=== PATIENT | female | born 1965 | race Caucasian/White ===

== ENCOUNTER 2019-11-02 11:51 | Outpatient (REF) | payer MEDICARE, SELFPAY ==
[2019-11-02 20:01] LABS: COMMENT (LAB VIEW ONLY) 81.66 mg/dL; Microalb ug/mg Crea 3.7 ug/mg Cr
[2019-11-02 21:27] LABS: ALT 32 U/L (14-59); AST 7 U/L (15-37); Albumin 3.5 g/dL (3.4-5.0); Alkaline Phosphatase 123 U/L (46-116); BUN 18 mg/dL (7-18); Bilirubin, Total 0.4 mg/dL (0.2-1.0); CREATININE 0.94 mg/dL (0.55-1.02); Calcium 9.1 mg/dL (8.5-10.1); Calculated LDL 67 mg/dL (<100); Chloride 105 mmol/L (98-107); Cholesterol 129 mg/dL (<200); Glucose 181 mg/dL (74-106); HDL Cholesterol 35 mg/dL (40-60); Sodium 139 mmol/L (136-145); Total Protein 6.6 g/dL (6.4-8.2); Triglyceride 137 mg/dL (<150)
== END 2019-11-02 12:11 ==
LOC: NCHCN 11:51
PROVIDERS: PCP Family Medicine; Visit Provider Nurse Practitioner Family
DX: E11.9 Type 2 diabetes mellitus without complications (principal); Z79.4 Long term (current) use of insulin; I10 Essential (primary) hypertension; E78.5 Hyperlipidemia, unspecified
CPT/HCPCS: 80053; 80061; 82043; 82570

== ENCOUNTER 2023-03-13 12:48 | Outpatient (REF) | payer MEDICARE, SELFPAY | END 2023-03-13 12:49 | disposition home or self-care (01) | LOC: NCHCN 12:48 | PROVIDERS: PCP Family Medicine; Visit Provider Family Medicine | DX: N39.0 Urinary tract infection, site not specified (principal) | CPT/HCPCS: 87077; 87086; 87186 ==

== ENCOUNTER 2023-07-28 13:24 | Outpatient (REF) | payer MEDICARE, SELFPAY ==
[2023-07-28 14:19] LABS: Abs Immature Grans 0.03 10^3/uL (0.0-0.06); Absolute Basophil Count 0.05 10^3/uL (0.0-0.2); Absolute Lymphocyte Count 1.32 10^3/uL (1.2-3.4); Absolute Monocyte Count 0.52 10^3/uL (0.1-0.8); Absolute Neutrophil Count 5.97 10^3/uL (1.2-6.7); Basophils % 0.6 %; Eosinophils % 4.8 %; HCT 40.5 % (36.0-46.0); HGB 12.7 g/dL (11.2-15.7); Immature Grans % 0.4 %; Lymphocytes % 15.9 %; MCH 28.4 pg (27.0-33.0); MCHC 31.4 % (32.0-36.0); MCV 91 fL (80-95); MPV 11.1 fL (8.0-11.0); Monocytes % 6.3 %; Platelet Count 266 10^3/uL (130-400); RBC 4.47 10^6/uL (3.93-5.22); RDW 13.8 % (11.7-14.6); RDW-SD 46.4 fL; WBC 8.29 10^3/uL (4.4-10.8)
[2023-07-28 15:08] LABS: ALT 36 U/L (14-59); AST 17 U/L (15-37); Albumin 3.4 g/dL (3.4-5.0); Alkaline Phosphatase 114 U/L (46-116); Anion Gap 4.6 mmol/L (3-11); BUN 18 mg/dL (7-18); Bilirubin, Total 0.5 mg/dL (0.2-1.0); CO2 28.4 mmol/L (21.0-32.0); CREATININE 1.2 mg/dL (0.55-1.02); Calcium 9.2 mg/dL (8.5-10.1); Chloride 103 mmol/L (98-107); Estimated GFR 52.14 (mL/min/1.73m2); Glucose 213 mg/dL (74-106); Potassium 5.9 mmol/L (3.5-5.1); Sodium 136 mmol/L (136-145); TSH 1.94 uIU/Ml (0.36-3.74); Total Protein 7.4 g/dL (6.4-8.2)
[2023-07-28 15:36] LABS: FREE T4 0.88 ng/dL (0.76-1.46)
== END 2023-07-28 13:25 | disposition home or self-care (01) ==
LOC: NCHCN 13:24
PROVIDERS: PCP Family Medicine; Visit Provider Family Medicine
DX: R19.7 Diarrhea, unspecified (principal); I10 Essential (primary) hypertension; E66.9 Obesity, unspecified
CPT/HCPCS: 80053; 84439; 84443; 85025

== ENCOUNTER 2023-08-06 16:18 | Outpatient (REF) | payer MEDICARE, SELFPAY ==
[2023-08-06 21:37] LABS: Anion Gap 4.2 mmol/L (3-11); BUN 22 mg/dL (7-18); CO2 30.8 mmol/L (21.0-32.0); CREATININE 1.3 mg/dL (0.55-1.02); Calcium 8.8 mg/dL (8.5-10.1); Chloride 102 mmol/L (98-107); Estimated GFR 47.37 (mL/min/1.73m2); Glucose 228 mg/dL (74-106); Potassium 5.2 mmol/L (3.5-5.1); Sodium 137 mmol/L (136-145)
== END 2023-08-06 16:19 | disposition home or self-care (01) ==
LOC: NCHCN 16:18
PROVIDERS: PCP Family Medicine; Visit Provider Family Medicine
DX: E87.5 Hyperkalemia (principal)
CPT/HCPCS: 80048

== ENCOUNTER 2023-08-18 19:04 | Outpatient (REF) | payer MEDICARE, SELFPAY ==
[2023-08-18 15:34] LABS: Anion Gap 7.7 mmol/L (3-11); BUN 19 mg/dL (7-18); CO2 27.3 mmol/L (21.0-32.0); CREATININE 1.3 mg/dL (0.55-1.02); Calcium 8.7 mg/dL (8.5-10.1); Chloride 102 mmol/L (98-107); Estimated GFR 47.37 (mL/min/1.73m2); Glucose 180 mg/dL (74-106); Potassium 4.6 mmol/L (3.5-5.1); Sodium 137 mmol/L (136-145)
== END 2023-08-18 19:05 | disposition home or self-care (01) ==
LOC: NCHCN 19:04
PROVIDERS: PCP Family Medicine; Visit Provider Family Medicine
DX: E87.5 Hyperkalemia (principal)
CPT/HCPCS: 80048

== ENCOUNTER 2024-09-02 14:00 | Outpatient (REF) | payer MEDICARE, SELFPAY ==
[2024-09-02 14:50] LABS: COMMENT (LAB VIEW ONLY) 75.57 mg/dL
== END 2024-09-02 14:01 | disposition home or self-care (01) ==
LOC: NCHCN 14:00
PROVIDERS: PCP Family Medicine; Visit Provider Family Medicine
DX: E11.9 Type 2 diabetes mellitus without complications (principal)
CPT/HCPCS: 82043; 82570

== ENCOUNTER 2024-12-08 10:05 | Outpatient (REF) | payer MEDICARE, SELFPAY ==
[2024-12-08 15:28] LABS: ALT 34 U/L (14-59); AST 29 U/L (15-37); Albumin 3.4 g/dL (3.4-5.0); Alkaline Phosphatase 104 U/L (46-116); Anion Gap 8.0 mmol/L (3-11); BUN 24 mg/dL (7-18); Bilirubin, Total 0.5 mg/dL (0.2-1.0); CO2 31.0 mmol/L (21.0-32.0); Calcium 9.3 mg/dL (8.5-10.1); Calculated LDL 67 mg/dL (<100); Chloride 102 mmol/L (98-107); Cholesterol 126 mg/dL (<200); Estimated GFR 64.09 (mL/min/1.73m2); Glucose 195 mg/dL (74-106); HDL Cholesterol 43 mg/dL (>or=50); Potassium 5.1 mmol/L (3.5-5.1); Sodium 141 mmol/L (136-145); Total Protein 7.1 g/dL (6.4-8.2); Triglyceride 83 mg/dL (<150)
== END 2024-12-08 10:06 | disposition home or self-care (01) ==
LOC: NCHCN 10:05
PROVIDERS: PCP Family Medicine; Visit Provider Family Medicine
DX: E78.5 Hyperlipidemia, unspecified (principal); I10 Essential (primary) hypertension
CPT/HCPCS: 80053; 80061